=== PATIENT | female | born 1945 | race Caucasian/White ===

== ENCOUNTER → 2018-03-28 | Outpatient (CLI) | payer MEDICARE, OTHER ==
[~2018-03-28] MED LIST: ALPR.25 PO; Accupril20 MG; CALCAVITDA PO; HYDACE5325 PO; HYDCHL12.5; LEVSOD137 PO; LEVSOD25 PO; NADO80 PO; Omeprazole20 M1; POLY500 PO; QUIN5 PO; QUINIPRIL PO; RABE20 PO; RXHYD5325 PO; SERT100 PO
[2018-03-28 16:21] LABS: Source, Urine Clean Catch
[2018-03-28 18:10] LABS: Bilirubin, Urine Neg (Neg); Blood, Urine 5+ (Neg); Glucose Qualitative, Urine Neg (Neg); Ketones, Urine Neg (Neg); Leukocyte Esterase, Urine 1+ (Neg); Nitrite, Urine Neg (Neg); Protein, Urine 3+ (Neg); Specific Gravity, Urine 1.005 (1.003-1.022); Urobilinogen, Urine NORM (Normal); pH, Urine 6.5 (5.0-8.0)
[2018-03-28 18:37] LABS: Appearance, Urine Hazy (Clear); Color, Urine Red (P-Yellow)
[2018-03-28 18:42] LABS: Bacteria Few /hpf; Squamous Epithelial Cells Few /hpf (Few)
== END | disposition home or self-care (01) ==
LOC: LAB 15:20 → LAB SHORT 15:20 → LAB FUT 03-29 15:00
PROVIDERS: Internal Medicine
DX: N39.46 Mixed incontinence (principal)
CPT/HCPCS: 81001; 87077; 87086; 87186

== ENCOUNTER → 2018-04-10 | Outpatient (CLI) | payer MEDICARE, OTHER ==
[2018-04-10 12:33] LABS: Bilirubin, Urine Neg (Neg); Blood, Urine 1+ (Neg); Glucose Qualitative, Urine Neg (Neg); Ketones, Urine Neg (Neg); Leukocyte Esterase, Urine Neg (Neg); Nitrite, Urine Neg (Neg); Protein, Urine Neg (Neg); Specific Gravity, Urine 1.005 (1.003-1.022); Urobilinogen, Urine NORM (Normal); pH, Urine 6.5 (5.0-8.0)
[2018-04-10 12:44] LABS: Appearance, Urine Clear (Clear); Bacteria Not Seen /hpf; Color, Urine Pale Yellow (P-Yellow); Red Blood Cells, Urine 0-2 /hpf (0-2); Squamous Epithelial Cells Not Seen /hpf (Few); White Blood Cells, Urine Not Seen /hpf (0-5)
== END | disposition home or self-care (01) ==
LOC: LAB 10:15 → LAB SHORT 10:15
PROVIDERS: Internal Medicine
DX: N30.90 Cystitis, unspecified without hematuria (principal)
CPT/HCPCS: 81001

== ENCOUNTER → 2018-05-05 | Outpatient (CLI) | payer MEDICARE, OTHER ==
[2018-05-05 12:28] LABS: BASOPHILS ABSOLUTE AUTO 0.03 K/mm3 (0.00-0.23); BASOPHILS PERCENT AUTO 1 % (0-2); EOSINOPHILS ABSOLUTE AUTO 0.25 K/mm3 (0.00-0.68); EOSINOPHILS PERCENT AUTO 4 % (0-6); Hematocrit 42.7 % (33.0-51.0); IMMATURE GRAN ABSOLUTE AUTO 0.03 K/mm3 (0.00-0.10); IMMATURE GRAN PERCENT AUTO 1 % (0-1); LYMPHOCYTES ABSOLUTE AUTO 1.73 K/mm3 (0.84-5.20); LYMPHOCYTES PERCENT AUTO 26 % (21-46); MONOCYTES ABSOLUTE AUTO 0.41 K/mm3 (0.16-1.47); MONOCYTES PERCENT AUTO 6 % (4-13); Mean Corpuscular HGB 30.4 pg (26.0-34.0); Mean Corpuscular HGB Conc 35.1 g/dL (31.5-36.5); Mean Corpuscular Volume 86 fL (80-100); Mean Platelet Volume 9.1 fL (9.1-12.4); NEUTROPHILS ABSOLUTE AUTO 4.12 K/mm3 (1.96-9.15); NEUTROPHILS PERCENT AUTO 63 % (41-73); Platelet Count 189 K/mm3 (150-400); RDW Coefficient Variation 12.3 % (11.7-14.2); RDW Standard Deviation 38.5 fL (35.1-46.3); Red Blood Cell Count 4.94 M/mm3 (3.80-5.20); White Blood Cell Count 6.57 K/mm3 (4.00-11.30)
[2018-05-05 12:42] LABS: Bun/Creatinine Ratio 16.7 (12.0-20.0); Calcium, Blood 9.2 mg/dL (8.5-10.1); Creatinine, Blood 1.14 mg/dL (0.40-1.00)
== END | disposition home or self-care (01) ==
LOC: LAB EV 12:22 → LAB SHORT 12:22
PROVIDERS: Physician Assistant Surgical
DX: R11.2 Nausea with vomiting, unspecified (principal)
CPT/HCPCS: 80048; 85025

== ENCOUNTER 2018-11-01 06:29 | Day surgery (SDC) | payer MEDICARE, OTHER ==
[~2018-11-01] VITALS: Ht 162.6 cm; Wt 82.8 kg
[~2018-11-01 06:29] MED LIST changes: -Accupril20 MG; +Accupril20 MG PO; -HYDCHL12.5; +HYDCHL12.5 PO; +METO100ER PO; -Omeprazole20 M1; +Omeprazole20 M1 PO; +Ranitidine HCl150 M1 PO; +SERT50 PO; +VITAMIN D32000 UNIT PO
--- NOTE | 2018-11-01 07:09 | NUR ---
11/01/18 0709 Krystin Bruno CALL LIGHT WITHIN REACH
== END 2018-11-01 08:18 | disposition home or self-care (01) ==
LOC: ORSCSDS 06:29
PROVIDERS: Ophthalmology
PROC: 08RJ3JZ Replacement of Right Lens with Synthetic Substitute, Percutaneous Approach (ICD-10-PCS; principal; 2018-11-01 08:00)
DX: H25.11 Age-related nuclear cataract, right eye (principal); I10 Essential (primary) hypertension; E03.9 Hypothyroidism, unspecified; K21.9 Gastro-esophageal reflux disease without esophagitis; Z79.899 Other long term (current) drug therapy
CPT/HCPCS: J2001; J2250; J3010; J3301; J7040; J7120; V2632

== ENCOUNTER → 2018-11-08 | Outpatient (CLI) | payer MEDICARE, OTHER | END | disposition home or self-care (01) | LOC: LAB SHORT 07:52 → PLD 07:52 | DX: L82.1 Other seborrheic keratosis (principal) | CPT/HCPCS: 88305 ==

== ENCOUNTER → 2020-06-23 | Outpatient (CLI) | payer MEDICARE | END | disposition home or self-care (01) | LOC: LAB 13:28 | DX: R19.7 Diarrhea, unspecified (principal) | CPT/HCPCS: 83993 ==

== ENCOUNTER → 2021-08-26 | Outpatient (CLI) | payer MEDICARE ==
[2021-08-26 11:12] LABS: Source, Urine Clean Catch
[2021-08-26 11:29] LABS: Appearance, Urine Clear (Clear); Bilirubin, Urine Neg (Neg); Blood, Urine 3+ (Neg); Color, Urine Yellow (P-Yellow); Glucose Qualitative, Urine Neg (Neg); Ketones, Urine Neg (Neg); Leukocyte Esterase, Urine 2+ (Neg); Nitrite, Urine Neg (Neg); Protein, Urine Neg (Neg); Specific Gravity, Urine 1.015 (1.003-1.022); Urobilinogen, Urine NORM (Normal)
[2021-08-26 12:06] LABS: Squamous Epithelial Cells Mod /hpf (Few)
[2021-08-26 12:07] LABS: Bacteria Few /hpf
== END ==
LOC: LAB SHORT 10:34
PROVIDERS: Student in an Organized Health Care Education/Training Program
DX: R10.9 Unspecified abdominal pain (principal)
CPT/HCPCS: 81001

== ENCOUNTER → 2021-09-30 | Outpatient (CLI) | payer MEDICARE ==
[2021-09-30 16:56] LABS: Source, Urine Voided
[2021-09-30 17:10] LABS: Appearance, Urine Clear (Clear); Bilirubin, Urine Neg (Neg); Blood, Urine 3+ (Neg); Color, Urine Yellow (P-Yellow); Glucose Qualitative, Urine Neg (Neg); Ketones, Urine Neg (Neg); Leukocyte Esterase, Urine 1+ (Neg); Nitrite, Urine Neg (Neg); Protein, Urine Neg (Neg); Specific Gravity, Urine 1.015 (1.003-1.022); Urobilinogen, Urine NORM (Normal); pH, Urine 6.5 (5.0-8.0)
[2021-09-30 17:21] LABS: Squamous Epithelial Cells Few /hpf (Few)
[2021-09-30 17:22] LABS: Bacteria Few /hpf; Transitional Epithelial Cells Rare /hpf (0-Rare)
== END | disposition home or self-care (01) ==
LOC: LAB 11:48 → LAB SHORT 11:48
PROVIDERS: Student in an Organized Health Care Education/Training Program
DX: R31.29 Other microscopic hematuria (principal)
CPT/HCPCS: 81001; 87086

== ENCOUNTER 2021-11-19 12:35 | Day surgery (SDC) | payer MEDICARE ==
[~2021-11-19] VITALS: Ht 165.1 cm; Wt 83.6 kg
== END 2021-11-19 15:07 | disposition home or self-care (01) ==
LOC: ORSCSDS 12:35
PROVIDERS: Surgery
PROC: 0DBH8ZX Excision of Cecum, Via Natural or Artificial Opening Endoscopic, Diagnostic (ICD-10-PCS; principal; 2021-11-19 14:00)
PROC: 0DBK8ZX Excision of Ascending Colon, Via Natural or Artificial Opening Endoscopic, Diagnostic (ICD-10-PCS; principal; 2021-11-19 14:00)
DX: Z12.11 Encounter for screening for malignant neoplasm of colon (principal); Z86.010 Personal history of colon polyps; Z80.0 Family history of malignant neoplasm of digestive organs; D12.2 Benign neoplasm of ascending colon; D12.0 Benign neoplasm of cecum; G47.33 Obstructive sleep apnea (adult) (pediatric); E03.9 Hypothyroidism, unspecified; F32.A Depression, unspecified; I10 Essential (primary) hypertension; E66.9 Obesity, unspecified; Z68.30 Body mass index [BMI] 30.0-30.9, adult; Z79.899 Other long term (current) drug therapy
CPT/HCPCS: 88305; J2405; J2704; J7120

== ENCOUNTER → 2023-10-26 | Outpatient (CLI) | payer MEDICARE | END | disposition home or self-care (01) | LOC: LAB SHORT 12:27 → LAB EV 12:27 | DX: D23.71 Other benign neoplasm of skin of right lower limb, including hip (principal) | CPT/HCPCS: 88305; 88312 ==

== ENCOUNTER 2024-01-27 08:27 | Day surgery (SDC) | payer MEDICARE ==
[~2024-01-27] VITALS: Ht 162.6 cm; Wt 85.5 kg
[2024-01-27] VITALS (17 sets, daily range): BP systolic 97–147; BP diastolic 53–126
[~2024-01-27 08:27] MED LIST changes: +ASPI325 PO; +Lactated Ringer's 1,000 ML IV SCH
--- NOTE | 2024-01-27 09:09 | NUR ---
Ambulatory in Day Surgery History, Chart, Medications and Allergies reviewed before start of procedure.Lungs clear T/O to Auscultation. Patient confirms NPO status and agrees with scheduled surgery. Patient states colon prep results clear. Patient States Post-Procedure ride home has been arranged.
[2024-01-27] MEDS ORDERED: propofoL 50 ML IV ONE (09:29)
--- NOTE | 2024-01-27 09:40 | NUR ---
01/27/24 0940 Minor Ortega History, Chart, Medications and Allergies reviewed before start of procedure.
--- NOTE | 2024-01-27 10:34 | NUR ---
Discharge instructions reviewed with patient. Patient verbalizes understanding. Copy given to patient to take home. Patient States Post-Procedure ride home has been arranged. Discharged via wheelchair to private car for ride home.
== END 2024-01-27 10:34 | disposition home or self-care (01) ==
LOC: ORSCMMR 08:27 → ORD 10:00 → ORSCMMR 10:34
PROVIDERS: Surgery
PROC: 0DJD8ZZ Inspection of Lower Intestinal Tract, Via Natural or Artificial Opening Endoscopic (ICD-10-PCS; principal; 2024-01-27 10:00)
DX: K59.00 Constipation, unspecified (principal); Z86.010 Personal history of colon polyps; K64.8 Other hemorrhoids; I10 Essential (primary) hypertension; K21.9 Gastro-esophageal reflux disease without esophagitis; G47.33 Obstructive sleep apnea (adult) (pediatric); F32.A Depression, unspecified; Z79.82 Long term (current) use of aspirin; Z79.899 Other long term (current) drug therapy
CPT/HCPCS: J2704; J7120

== ENCOUNTER → 2024-04-02 | Outpatient (CLI) | payer MEDICARE ==
[~2024-04-02] MED LIST changes: -Lactated Ringer's 1,000 ML IV SCH
[2024-04-02 18:54] LABS: Source, Urine Clean Catch
[2024-04-02 19:02] LABS: Appearance, Urine Clear (Clear); Bilirubin, Urine Neg (Neg); Blood, Urine 2+ (Neg); Color, Urine Yellow (P-Yellow); Glucose Qualitative, Urine Neg (Neg); Ketones, Urine Neg (Neg); Leukocyte Esterase, Urine 3+ (Neg); Nitrite, Urine Neg (Neg); Protein, Urine Neg (Neg); Specific Gravity, Urine 1.005 (1.003-1.022); Urobilinogen, Urine NORM (Normal)
[2024-04-02 19:13] LABS: Bacteria Many /hpf; Red Blood Cells, Urine 0-2 /hpf (0-2); Squamous Epithelial Cells Few /hpf (Few)
== END | disposition home or self-care (01) ==
LOC: LAB 16:30 → LAB SHORT 16:30
PROVIDERS: Student in an Organized Health Care Education/Training Program
DX: R30.0 Dysuria (principal)
CPT/HCPCS: 81001; 87086

== ENCOUNTER → 2024-04-11 | Outpatient (CLI) | payer MEDICARE ==
[2024-04-11 10:03] LABS: Source, Urine Clean Catch
[2024-04-11 13:12] LABS: Appearance, Urine Clear (Clear); Bilirubin, Urine Neg (Neg); Blood, Urine 2+ (Neg); Color, Urine Yellow (P-Yellow); Glucose Qualitative, Urine Neg (Neg); Ketones, Urine Neg (Neg); Leukocyte Esterase, Urine 1+ (Neg); Nitrite, Urine Neg (Neg); Protein, Urine Neg (Neg); Urobilinogen, Urine NORM (Normal)
[2024-04-11 13:54] LABS: Bacteria Few /hpf; Squamous Epithelial Cells Few /hpf (Few)
[2024-04-11 13:55] LABS: Transitional Epithelial Cells Rare /hpf (0-Rare)
== END ==
LOC: LAB 10:01 → LAB SHORT 10:01
PROVIDERS: Student in an Organized Health Care Education/Training Program
DX: R30.0 Dysuria (principal)
CPT/HCPCS: 81001; 87086

== ENCOUNTER 2024-06-24 18:21 | Observation (INO) | payer MEDICARE ==
[~2024-06-24] VITALS: Ht 162.6 cm; Wt 89.3 kg
[2024-06-24] MEDS ORDERED: SERTRALINE HCL150 M1 PO (18:47)
[2024-06-24] MEDS ORDERED: LISI20 PO (18:49)
[2024-06-24] MEDS ORDERED: Metoprolol Succinate 50 MG TABCR PO ONE (18:50)
[2024-06-24 18:52] LABS: BASOPHILS ABSOLUTE AUTO 0.04 K/mm3 (0.00-0.23); BASOPHILS PERCENT AUTO 1 % (0-2); EOSINOPHILS ABSOLUTE AUTO 0.31 K/mm3 (0.00-0.68); EOSINOPHILS PERCENT AUTO 4 % (0-6); Hematocrit 43.6 % (33.0-51.0); Hemoglobin 15.3 g/dL (11.5-16.0); IMMATURE GRAN ABSOLUTE AUTO 0.01 K/mm3 (0.00-0.10); IMMATURE GRAN PERCENT AUTO 0 % (0-1); LYMPHOCYTES PERCENT AUTO 11 % (21-46); MONOCYTES ABSOLUTE AUTO 0.68 K/mm3 (0.16-1.47); MONOCYTES PERCENT AUTO 8 % (4-13); Mean Corpuscular HGB 30.1 pg (26.0-34.0); Mean Corpuscular HGB Conc 35.1 g/dL (31.5-36.5); Mean Corpuscular Volume 86 fL (80-100); Mean Platelet Volume 8.9 fL (9.1-12.4); NEUTROPHILS ABSOLUTE AUTO 6.77 K/mm3 (1.96-9.15); NEUTROPHILS PERCENT AUTO 77 % (41-73); Platelet Count 172 K/mm3 (150-400); RDW Coefficient Variation 12.5 % (11.7-14.2); RDW Standard Deviation 39.5 fL (35.1-46.3); Red Blood Cell Count 5.09 M/mm3 (3.80-5.20); White Blood Cell Count 8.81 K/mm3 (4.00-11.30)
[2024-06-24 19:12] LABS: Albumin/Globulin Ratio 1.1 (0.8-1.8); Bilirubin, Total 0.6 mg/dL (0.1-1.0); Bun/Creatinine Ratio 15.9 (12.0-20.0); Calcium, Blood 9.6 mg/dL (8.5-10.1); Creatinine, Blood 0.82 mg/dL (0.40-1.00); Globulin, Blood 3.5 g/dL (2.2-4.0); Potassium, Blood 3.8 mmol/L (3.5-5.5); Total Protein, Blood 7.5 g/dL (6.4-8.2)
[2024-06-24 19:26] LABS: Free Thyroxine 1.13 ng/dL (0.70-1.60); Magnesium, Blood 1.9 mg/dL (1.6-2.4)
[2024-06-24 19:28] LABS: Thyroid Stimulating Hormone 3.05 uIU/mL (0.360-4.800)
[2024-06-24] MEDS ORDERED: FLU VACC TS2024-25(6MOS UP)/PF 45 MCG/0.5 ML SYRINGE IM ONE (21:35)
[2024-06-24] MEDS ORDERED: Ondansetron HCl 2 MG / ML 2ML Vial IV PRN (21:35)
[2024-06-24] MEDS ORDERED: Nitroglycerin 0.4 MG SUBL SL PRN (21:35)
[2024-06-24] MEDS ORDERED: Mag Sulfate 1 GM/D5% 100ML 100 ML IV STA (22:16)
[2024-06-24] MEDS ORDERED: Metoprolol Tartrate 1 MG/ML 5 ML VIAL IV PRN (22:20)
[2024-06-24 22:30] VITALS: BP 160/81
[2024-06-24] MEDS ORDERED: Metoprolol Tartrate 1 MG/ML 5 ML VIAL IV ONE (23:00)
--- NOTE | 2024-06-24 23:02 | NUR ---
LOPRESSOR: HOSPITALIST CALLED TO CLARIFY 1X NOW DOSE OF IV LOPRESSOR. PT VITALS AND HR REV W/MD. ORDER TO HOLD DOSE.
[2024-06-25] MEDS ORDERED: Lactated Ringer's 1,000 ML IV SCH
[2024-06-25 04:24] VITALS: BP 144/67
[2024-06-25 04:27] LABS: BASOPHILS ABSOLUTE AUTO 0.05 K/mm3 (0.00-0.23); BASOPHILS PERCENT AUTO 1 % (0-2); EOSINOPHILS ABSOLUTE AUTO 0.21 K/mm3 (0.00-0.68); EOSINOPHILS PERCENT AUTO 3 % (0-6); Hematocrit 42.4 % (33.0-51.0); Hemoglobin 14.4 g/dL (11.5-16.0); IMMATURE GRAN ABSOLUTE AUTO 0.04 K/mm3 (0.00-0.10); IMMATURE GRAN PERCENT AUTO 1 % (0-1); LYMPHOCYTES ABSOLUTE AUTO 0.55 K/mm3 (0.84-5.20); LYMPHOCYTES PERCENT AUTO 8 % (21-46); MONOCYTES ABSOLUTE AUTO 0.75 K/mm3 (0.16-1.47); MONOCYTES PERCENT AUTO 11 % (4-13); Mean Corpuscular HGB 29.6 pg (26.0-34.0); Mean Corpuscular Volume 87 fL (80-100); Mean Platelet Volume 8.5 fL (9.1-12.4); NEUTROPHILS PERCENT AUTO 77 % (41-73); Platelet Count 165 K/mm3 (150-400); RDW Coefficient Variation 12.7 % (11.7-14.2); RDW Standard Deviation 40.7 fL (35.1-46.3); Red Blood Cell Count 4.87 M/mm3 (3.80-5.20)
[2024-06-25 04:52] LABS: Alanine Aminotransfer (ALT/SGP 29 U/L (12-78); Albumin, Blood 3.7 g/dL (3.4-5.0); Albumin/Globulin Ratio 1.2 (0.8-1.8); Alk Phos 59 U/L (50-136); Anion Gap 11 mmol/L (3-11); Aspartate Aminotrans (AST/SGOT 20 U/L (12-37); Bilirubin, Total 1.1 mg/dL (0.1-1.0); Blood Urea Nitrogen 12 mg/dL (8-24); Bun/Creatinine Ratio 14.7 (12.0-20.0); CHOL/HDL RATIO 2.2; CO2, Blood 29 mmol/L (21-32); Calcium, Blood 9.2 mg/dL (8.5-10.1); Chloride, Blood 100 mmol/L (98-108); Cholesterol 192 mg/dL (50-200); Creatinine, Blood 0.82 mg/dL (0.40-1.00); Globulin, Blood 3.2 g/dL (2.2-4.0); Glomerular Filtration Rate 74 (60-); Glucose, Blood 128 mg/dL (70-99); HDL Cholesterol 86 mg/dL (>39); Low Density Lipoprotein Chol 90 mg/dL (0-110); Magnesium, Blood 2.4 mg/dL (1.6-2.4); Sodium, Blood 136 mmol/L (136-145); Total Protein, Blood 6.9 g/dL (6.4-8.2); Triglycerides 81 mg/dL (30-160); Very Low Density Lipoprot Chol 16 mg/dL (6-32)
[2024-06-25] MEDS ORDERED: Omeprazole 20 MG CapCR PO SCH (06:00)
[2024-06-25] MEDS ORDERED: Levothyroxine Sodium 0.137 MG Tab PO SCH (06:00)
--- NOTE | 2024-06-25 06:05 | NUR ---
SHIFT SUMMARY PT A/OX4 WITH VSS. DENIES CP/PRESSURE T/O SHIFT. TELE IN PLACE WITH SR @ 79 BPM PER TECH. SBA TO BATHROOM. PT DENIES FEELING DIZZY OR LIGHTHEADED. LR INFUSING PER ORDERS. NPO SINCE MIDNIGHT. PLAN FOR STRESS TEST TODAY. PT RESTING IN BED WITH CALL LIGHT IN REACH. WILL GIVE REPORT TO ONCOMING RN.
[2024-06-25 07:42] VITALS: BP 142/90
[2024-06-25] MEDS ORDERED: HydroCHLOROthiazide 25 mg Tab PO SCH (09:00)
[2024-06-25] MEDS ORDERED: Cholecalciferol 1000 Unit Tablet (=25MCG) PO SCH (09:00)
[2024-06-25] MEDS ORDERED: Enoxaparin 40 MG/0.4 ML SYR SC SCH (09:00)
[2024-06-25] MEDS ORDERED: Metoprolol Tartrate 50 MG Tab PO SCH (09:00)
[2024-06-25] MEDS ORDERED: Aspirin 81 MG Chew PO SCH (09:00)
[2024-06-25] MEDS ORDERED: Lisinopril 20 MG Tab PO SCH (09:00)
[2024-06-25] MEDS ORDERED: Sertraline HCl 100 MG Tab PO SCH (09:00)
--- NOTE | 2024-06-25 09:58 | NUR ---
MORNING NOTE THIS RN ASSUMED CARE AT APPROX 0715. PATIENT ALERT AND ORIENTED X4. INDEPENDENT IN ROOM. VSS. TELEMETRY SHOWING SINUS 70 PER DISPATCH COORDINATOR. DENIES CHEST PAIN, PRESSURE. ONE DAY STRESS TEST INITIATED THIS MORNING. TOLERATING ROOM AIR, SATs >90%. RR EVEN, UNLABORED AT REST AND WITH MOBILITY. CALL LIGHT IN REACH.
[2024-06-25] MEDS ORDERED: Regadenoson 0.4 MG/5 ML SYRINGE ONE (13:46)
[2024-06-25] MEDS ORDERED: Caffeine Citrated 60 MG/3 ML Vial ONE (13:46)
[2024-06-25 13:47] LABS: Adenovirus Not Detected (NOT DETECT)
[2024-06-25 13:48] LABS: Bordetella pertussis Not Detected (NOT DETECT); Chlamydophila pneumoniae Not Detected (NOT DETECT); Coronavirus 229E Not Detected (NOT DETECT); Coronavirus HKU1 Not Detected (NOT DETECT); Coronavirus NL63 Not Detected (NOT DETECT); Coronavirus OC43 Not Detected (NOT DETECT); Human Metapneumovirus Not Detected (NOT DETECT); Human Rhinovirus/Enterovirus Not Detected (NOT DETECT); Influenza A/2009-H1 Not Detected (NOT DETECT); Influenza A/H1 Not Detected (NOT DETECT); Influenza A/H3 Detected (NOT DETECT); Influenza B Not Detected (NOT DETECT); Mycoplasma pneumoniae Not Detected (NOT DETECT); Parainfluenza Virus 1 Not Detected (NOT DETECT); Parainfluenza Virus 2 Not Detected (NOT DETECT); Parainfluenza Virus 3 Not Detected (NOT DETECT); Parainfluenza Virus 4 Not Detected (NOT DETECT); Respiratory Syncytial Virus Not Detected (NOT DETECT); SARS-Cov-2 (COVID-19), BioFire Not Detected (NOT DETECT)
[2024-06-25 15:03] VITALS: BP 122/61
[2024-06-25] MEDS ORDERED: OSEL75CA PO (17:02)
--- NOTE | 2024-06-25 17:35 | NUR ---
DISCHARGE NOTE NO ACUTE CHANGES SINCE MORNING NOTE. VS REMAIN STABLE. NO EVENTS REPORTED BY RAISIN SEPARATOR OPERATOR. ONE DAY STRESS TEST COMPLETED. NO EPISODES OF CHEST PAIN, PRESSURE. REMAINS ON ROOM AIR, SATs >90%. DENIES SHORTNESS OF BREATH WITH MOBILITY OR AT REST. REPORTING OCCASIONAL NONPRODUCTIVE COUGH AND GENERAL MALAISE - RESPIRATORY PANEL PERFORMED. POSITIVE FOR FLU. DC HOME ORDERED BY THIS EVENING. DC EDUCATION PERFORMED - PATIENT STATES UNDERSTANDING. DC MEDICATIONS FAXED TO [facility]. IV AND TELEMETRY REMOVED. PATIENT TRANSFERRED TO PERSONAL VEHICLE VIA WHEELCHAIR AT APPROX 1730. PERSONAL BELONGINGS WITH PATIENT.
[2024-06-25] MEDS ORDERED: Oseltamivir Phosphate 75 MG Cap PO SCH (21:00)
== END 2024-06-25 17:48 | disposition home or self-care (01) ==
LOC: ER 18:21 → ERHOLD 18:22 → SURS 18:22
PROVIDERS: Emergency Medicine; Internal Medicine; ADMIT Student in an Organized Health Care Education/Training Program
DX: R07.89 Other chest pain (principal); I10 Essential (primary) hypertension; F32.9 Major depressive disorder, single episode, unspecified; E78.5 Hyperlipidemia, unspecified; E03.9 Hypothyroidism, unspecified; E05.90 Thyrotoxicosis, unspecified without thyrotoxic crisis or storm; J20.9 Acute bronchitis, unspecified; K21.9 Gastro-esophageal reflux disease without esophagitis; Z79.899 Other long term (current) drug therapy; Z88.0 Allergy status to penicillin; Z88.2 Allergy status to sulfonamides; Z88.8 Allergy status to other drugs, medicaments and biological substances
CPT/HCPCS: 0202U; 36415; 71046; 71260; 78452; 80053; 80061; 83036; 83735; 83880; 84439; 84443; 84484; 85025; 85379; 93005; 93010; 93017; 93306; 94762; 96372; 96374; 96375; 99285-25; A9270; A9500; G0378; J0706; J1650; J2785; J3475; J7120; Q9967

== ENCOUNTER → 2025-02-26 | Outpatient (CLI) | payer MEDICARE ==
[~2025-02-26] MED LIST changes: +LISI20 PO; +OSEL75CA PO; +SERTRALINE HCL150 M1 PO
[2025-02-26 17:10] LABS: Source, Urine Clean Catch
[2025-02-26 18:53] LABS: Bilirubin, Urine Neg (Neg); Color, Urine Yellow (P-Yellow); Glucose Qualitative, Urine Neg (Neg); Ketones, Urine Neg (Neg); Leukocyte Esterase, Urine 2+ (Neg); Protein, Urine Neg (Neg); Specific Gravity, Urine 1.005 (1.003-1.022); Urobilinogen, Urine NORM (Normal)
[2025-02-26 19:00] LABS: Red Blood Cells, Urine 0-2 /hpf (0-2)
== END ==
LOC: LAB SHORT 17:08 → LAB 17:08
PROVIDERS: Student in an Organized Health Care Education/Training Program
DX: R30.0 Dysuria (principal)
CPT/HCPCS: 81001; 87086

== ENCOUNTER → 2025-04-30 | Outpatient (CLI) | payer MEDICARE | END | disposition home or self-care (01) | LOC: LAB 11:45 → LAB SHORT 11:45 | DX: S61.258A Open bite of other finger without damage to nail, initial encounter (principal); B99.9 Unspecified infectious disease | CPT/HCPCS: 87070; 87075; 87077; 87186; 87205 ==

== ENCOUNTER → 2025-06-03 | Outpatient (CLI) | payer MEDICARE ==
[2025-06-03 18:42] LABS: BASOPHILS ABSOLUTE AUTO 0.05 K/mm3 (0.00-0.23); BASOPHILS PERCENT AUTO 1 % (0-2); EOSINOPHILS ABSOLUTE AUTO 0.52 K/mm3 (0.00-0.68); EOSINOPHILS PERCENT AUTO 7 % (0-6); Hematocrit 44.6 % (33.0-51.0); Hemoglobin 14.8 g/dL (11.5-16.0); IMMATURE GRAN ABSOLUTE AUTO 0.02 K/mm3 (0.00-0.10); IMMATURE GRAN PERCENT AUTO 0 % (0-1); LYMPHOCYTES ABSOLUTE AUTO 2.38 K/mm3 (0.84-5.20); LYMPHOCYTES PERCENT AUTO 34 % (21-46); MONOCYTES ABSOLUTE AUTO 0.64 K/mm3 (0.16-1.47); MONOCYTES PERCENT AUTO 9 % (4-13); Mean Corpuscular HGB Conc 33.2 g/dL (31.5-36.5); Mean Corpuscular Volume 89 fL (80-100); NEUTROPHILS ABSOLUTE AUTO 3.41 K/mm3 (1.96-9.15); NEUTROPHILS PERCENT AUTO 49 % (41-73); NRBC ABSOLUTE 0.00 K/mm3 (0.00-0.02); NRBC Auto 0.0 /100 WBC (0.0-0.2); Platelet Count 220 K/mm3 (150-400); RDW Coefficient Variation 12.9 % (11.7-14.2); RDW Standard Deviation 42.1 fL (35.1-46.3)
[2025-06-04 01:03] LABS: Alanine Aminotransfer (ALT/SGP 36 U/L (12-78); Albumin, Blood 4.2 g/dL (3.4-5.0); Albumin/Globulin Ratio 1.4 (0.8-1.8); Anion Gap 8 mmol/L (3-11); Aspartate Aminotrans (AST/SGOT 27 U/L (12-37); Bilirubin, Total 0.9 mg/dL (0.1-1.0); Blood Urea Nitrogen 17 mg/dL (8-24); CHOL/HDL RATIO 3.0; CO2, Blood 27 mmol/L (21-32); Calcium, Blood 9.7 mg/dL (8.5-10.1); Chloride, Blood 102 mmol/L (98-108); Cholesterol 203 mg/dL (50-200); Creatinine, Blood 0.85 mg/dL (0.40-1.00); Globulin, Blood 3.1 g/dL (2.2-4.0); Glucose, Blood 83 mg/dL (70-99); HDL Cholesterol 68 mg/dL (>39); LDL/HDL RATIO 1.5; Low Density Lipoprotein Chol 103 mg/dL (0-110); Potassium, Blood 4.2 mmol/L (3.5-5.5); Sodium, Blood 133 mmol/L (136-145); Thyroid Stimulating Hormone 2.880 uIU/mL (0.360-4.800); Total Protein, Blood 7.3 g/dL (6.4-8.2); Triglycerides 158 mg/dL (30-160); Very Low Density Lipoprot Chol 31 mg/dL (6-32)
== END ==
LOC: LAB 16:58 → LAB SHORT 16:58
PROVIDERS: Student in an Organized Health Care Education/Training Program
DX: E78.2 Mixed hyperlipidemia (principal); E03.9 Hypothyroidism, unspecified; I10 Essential (primary) hypertension; F41.1 Generalized anxiety disorder; G47.33 Obstructive sleep apnea (adult) (pediatric); M17.11 Unilateral primary osteoarthritis, right knee; N32.81 Overactive bladder
CPT/HCPCS: 80053; 80061; 84443; 85025